=== PATIENT | male | born 1965 | race African-American/Black ===

== ENCOUNTER 2022-04-17 17:56 | Emergency (ER) | payer OTHER ==
[2022-04-17] MEDS ORDERED: FLUORESCEIN SODIUM 1 MG/WRAP ONE (18:38)
[2022-04-17] MEDS ORDERED: TETRACAINE HCL 0.5% 4ML OPTH ONE (18:38)
[2022-04-17] MEDS ORDERED: TOBRAMYCIN SULF 0.3% OPTH OINT ONE (19:14)
[2022-04-17] MEDS ORDERED: CEFTRIAXONE 1000 MG/VIAL ONE (19:14)
[2022-04-17] MEDS ORDERED: WATER FOR INJ,STERILE 10 ML ONE (19:15)
[2022-04-17] MEDS ORDERED: LIDOCAINE 1% MPF 5 ML VIAL ONE (19:16)
--- NOTE | 2022-04-17 19:28 | ER ---
Nurse's Notes [facility] Name: Flip Suazo Age: 56 yrs Sex: Male : 1965 Arrival Date: 04/17/2022 Time: 18:02 Bed 11 Private MD: Diagnosis: Acute conjunctivitis Presentation: 04/17 18:05 Chief complaint: Patient states: Left eye pain, swelling and discharge x5 days. kb3 Coronavirus screen: Vaccine status: Patient reports being unvaccinated. Client denies travel out of the [place] in the last 14 days. Ebola Screen: Patient negative for fever greater than or equal to 101.5 degrees Fahrenheit, and additional compatible Ebola Virus Disease symptoms Patient denies exposure to infectious person. Patient denies travel to an Ebola-affected area in the 21 days before illness onset. Initial Sepsis Screen: Does the patient meet any 2 criteria? No. Patient's initial sepsis screen is negative. Does the patient have a suspected source of infection? No. Patient's initial sepsis screen is negative. Risk Assessment: Do you want to hurt yourself or someone else? Patient reports no desire to harm self or others. Onset of symptoms was April 12, 2022. 18:05 Method Of Arrival: Ambulatory kb3 18:05 Acuity: CA 3 kb3 Triage Assessment: 18:07 General: Appears in no apparent distress. Behavior is calm, cooperative. Pain: kb3 Complains of pain in left eye Pain does not radiate. Pain currently is 5 out of 10 on a pain scale. Historical: - Allergies: 18:07 No Known Allergies; kb3 - PMHx: 18:07 Hypertensive disorder; CAD; Hypercholesterolemia; kb3 - PSHx: 18:07 Cardiac stent; kb3 - Immunization history:: Adult Immunizations up to date, Client reports having NOT received the Covid vaccine. Last tetanus immunization: up to date. - Social history:: Smoking status: Patient reports the use of cigarette tobacco products, smokes one pack cigarettes per day. Screenin:10 Abuse screen: Denies threats or abuse. Denies injuries from another. Nutritional kb3 screening: No deficits noted. Tuberculosis screening: No symptoms or risk factors identified. Fall Risk None identified. Assessment: 18:10 General: See triage note. kb3 18:10 EENT: Eyes are tearing on inner aspect of conjunctiva of left eye with exudate noted kb3 from inner aspect of conjunctiva of left eye. Vital Signs: 18:05 BP 184 / 117; Pulse 83; Resp 20; Temp 98.7; Pulse Ox 100% ; Weight 88.9 kg; Height 5 kb3 ft. 10 in. (177.80 cm); Pain 5/10; 18:05 Body Mass Index 28.12 (88.90 kg, 177.80 cm) kb3 ED Course: 18:02 Patient arrived in ED. jj6 18:07 Triage completed. kb3 18:07 Arm band placed on right wrist. kb3 18:10 Ever Alvarez PA is PHCP. jmm 18:10 Emigdio Paige DO is Attending Physician. jmm 18:10 Patient has correct armband on for positive identification. kb3 18:10 No provider procedures requiring assistance completed. Patient did not have IV access kb3 during this emergency room visit. 18:34 Amairani Randolph, ANGÉLICA is Primary Nurse. kb3 19:26 Moises Aaron MD is Referral Physician. m 19:26 Yani Whiteside MD is Referral Physician. [facility] Administered Medications: 19:19 Drug: Tetracaine Drops 0.5 % 1 drops Route: Ophthalmic; Site: right eye; kd3 19:24 Drug: Tobramycin Ointment (0.3 %) 1 application Route: Ophthalmic; Site: left eye; kd3 19:33 Follow up: Response: No adverse reaction kd3 19:24 Drug: Rocephin (cefTRIAXone) 1 grams Route: IM; Site: right vastus lateralis; kd3 19:33 Follow up: Response: No adverse reaction kd3 Medication: 18:10 VIS not applicable for this client. kb3 Outcome: 19:27 Discharge ordered by . [facility] 19:32 Discharged to home ambulatory. kd3 19:32 Condition: stable 19:32 Discharge instructions given to patient, family, Instructed on discharge instructions, follow up and referral plans. medication usage, Demonstrated understanding of instructions, follow-up care, medications, Prescriptions given X 1. 19:33 Patient left the ED. kd3 Signatures: Ever Alvarez PA PA Yesenia Garcia jj6 Brenda Herman RN RN kd3 Amairani Randolph, RN RN kb3
--- NOTE | 2022-04-17 19:28 | EDPHYS ---
Physician Documentation [facility] Name: Flip Suazo Age: 56 yrs Sex: Male : 1965 Arrival Date: 04/17/2022 Time: 18:02 Bed 11 Private MD: ED Physician Emigdio Paige HPI: 04/17 20:01 This 56 yrs old Black Male presents to ER via Ambulatory with complaints of Eye Problem.jmm 20:01 Onset: The symptoms/episode began/occurred gradually, 5 day(s) ago. Duration: the jmm symptoms are continuous. Is a 56-year-old male with history of hypertension, coronary artery disease, hyperlipidemia the presents emerged part with complaints of left eye pain, drainage, redness. Patient states that he developed irritation of his left eye around 5 days ago over the past 2 days he has had increased purulent drainage. Patient was seen in urgent care who may concerns for an abscess in the eye. Patient denies changes in vision. Historical: - Allergies: 18:07 No Known Allergies; kb3 - PMHx: 18:07 Hypertensive disorder; CAD; Hypercholesterolemia; kb3 - PSHx: 18:07 Cardiac stent; kb3 - Immunization history:: Adult Immunizations up to date, Client reports having NOT received the Covid vaccine. Last tetanus immunization: up to date. - Social history:: Smoking status: Patient reports the use of cigarette tobacco products, smokes one pack cigarettes per day. ROS: 20:01 Constitutional: Negative for fever, chills, and weight loss. jmm 20:01 Eyes: Positive for itching. 20:01 All other systems are negative. Exam: 20:01 Constitutional: This is a well developed, well nourished patient who is awake, alert, jmm and in no acute distress. 20:01 ENT: Moist Mucus Membranes Neck: Trachea midline, Supple Chest/axilla: Normal chest wall appearance and motion. Cardiovascular: Regular rate and rhythm. No edema appreciated Respiratory: Normal respirations, no respiratory distress appreciated Abdomen/GI: Non distended Back: Normal ROM Skin: General appearance color normal MS/ Extremity: Moves all extremities, no obvious deformities appreciated, no edema noted to the lower extremities Neuro: Awake and alert Psych: Behavior is normal, Mood is normal, Patient is cooperative and pleasant 20:01 Head/face: Mild left eyelid swelling, nontender to palpation. 20:01 Eyes: Extraocular movements: Conjunctiva: injected, in the left eye, Corneas: are normal, no evidence of abrasion, no foreign body, Sclera: abrasion, of the medial aspect of conjunctiva of left eye, Anterior chamber: no acute changes, Intraocular pressure: left eye = 15mmHg. Vital Signs: 18:05 BP 184 / 117; Pulse 83; Resp 20; Temp 98.7; Pulse Ox 100% ; Weight 88.9 kg; Height 5 kb3 ft. 10 in. (177.80 cm); Pain 5/10; 18:05 Body Mass Index 28.12 (88.90 kg, 177.80 cm) kb3 MDM: 18:12 Patient medically screened. [facility] 19:25 Data reviewed: vital signs, nurses notes. Counseling: I had a detailed discussion with [facility] the patient and/or guardian regarding: the historical points, exam findings, and any diagnostic results supporting the discharge/admit diagnosis, the need for outpatient follow up, to return to the emergency department if symptoms worsen or persist or if there are any questions or concerns that arise at home. 20:03 ED course: Patient is alert nontoxic in appearance NAD. Patient administered ophthalmic [facility] antibiotics and oral antibiotics. Advised follow-up with ophthalmology. I did give the patient strict return precautions. Patient most likely has a bacterial conjunctivitis secondary to a scleral injury.. 04/17 18:20 Order name: Eye Tray; Complete Time: 18:34 [facility] 04/17 18:20 Order name: Fluoresene Opth strip; Complete Time: 18:34 [facility] Administered Medications: 19:19 Drug: Tetracaine Drops 0.5 % 1 drops Route: Ophthalmic; Site: right eye; kd3 19:24 Drug: Tobramycin Ointment (0.3 %) 1 application Route: Ophthalmic; Site: left eye; kd3 19:33 Follow up: Response: No adverse reaction kd3 19:24 Drug: Rocephin (cefTRIAXone) 1 grams Route: IM; Site: right vastus lateralis; kd3 19:33 Follow up: Response: No adverse reaction kd3 Disposition: 04/18 07:57 Co-signature as Attending Physician, Emigdio Paige DO I was immediately available on-site ms3 in the Emergency Department for consultation in the care of the patient. Disposition Summary: 04/17/22 19:27 Discharge Ordered Location: Home [facility] Condition: Stable [facility] Diagnosis - Acute conjunctivitis [facility] Followup: [facility] - With: Moises Aaron MD - When: 2 - 3 days - Reason: Recheck today's complaints, Continuance of care, Re-evaluation by your physician Followup: [facility] - With: Yani Whiteside MD - When: 2 - 3 days - Reason: Recheck today's complaints, Continuance of care, Re-evaluation by your physician Discharge Instructions: - Discharge Summary Sheet [facility] - Bacterial Conjunctivitis, Adult [facility] Forms: - Medication Reconciliation Form [facility] - Thank You Letter [facility] - Antibiotic Education [facility] - Prescription Opioid Use [facility] Prescriptions: - cefdinir 300 mg Oral capsule - take 1 capsule by ORAL route every 12 hours for 10 days; 20 capsule; Refills: [facility] 0, Product Selection Permitted Signatures: Ever Alvarez PA PA [facility] Emigdio Paige DO DO ms3 Brenda Herman, RN RN kd3 Amairani Randolph RN RN kb3
[2022-04-17 19:38] VITALS: BP 184/117; TEMP 98.7; O2SAT 100
== END 2022-04-17 19:33 | disposition home or self-care (01) ==
LOC: ER 17:56
DX: H10.30 Unspecified acute conjunctivitis, unspecified eye (principal); I10 Essential (primary) hypertension; F17.210 Nicotine dependence, cigarettes, uncomplicated
CPT/HCPCS: 96372; 99283; J2001

== ENCOUNTER 2024-05-31 02:05 | Inpatient (IN) | payer OTHER, SELFPAY ==
[2024-05-31] MEDS ORDERED: GUAIFENESIN/DM 5 ML UCUP ONE (02:36)
[2024-05-31 03:09] LABS: Absolute Eosinophils 0.1 K/uL (0-0.5); Absolute Lymphocytes (CBC) 0.9 K/uL (0.7-4.9); Absolute Monocytes 0.5 K/uL (0.1-1.3); Absolute Neutrophil 9.6 K/uL (1.8-8.0); Basophils % 0.4 % (0-1.3); Eosinophils % 0.9 % (0-4.4); Hematocrit 31.3 % (39.6-49.0); Hemoglobin 9.9 g/dL (13.6-17.9); Lymphocytes % 8.3 % (15.3-44.8); MCH 22.6 pg (27.0-35.0); MCHC 31.5 g/dL (32.0-36.0); MCV 71.8 fL (80-100); MPV 8.5 fL (7.6-11.3); Monocytes % 4.5 % (3.3-12.3); Neutrophils % 85.9 % (41.7-73.7); PT Prothrombin Time 14.8 SECONDS (9.4-12.5); Platelets 375 thou/uL (152-406); Protime INR 1.33; RBC Red Blood Cell Count 4.36 M/uL (4.33-5.43); Red Cell Distribution Width 23.5 % (12.1-15.2)
[2024-05-31 03:21] LABS: Albumin 3.1 g/dL (3.4-5.0); Albumin/Globulin Ratio 0.7 (1.1-1.8); Anion Gap 9.2 mEq/L (5.0-15.0); Bilirubin Direct 0.3 mg/dL (0-0.2); Bilirubin Indirect, Calculated 0.7 mg/dL (0.2-0.8); C-Reactive Protein 16.5 mg/L (<3.00); Globulin 4.5 g/dL (2.3-3.5); Magnesium 2.2 mg/dL (1.6-2.4); Potassium 3.2 mEq/L (3.5-5.1); Protein, Total 7.6 g/dL (6.4-8.2)
[2024-05-31 03:22] LABS: Troponin High Sensitivity 83.7 pg/mL (<58.9)
[2024-05-31] MEDS ORDERED: FUROSEMIDE 40 MG/4 ML VIAL ONE (03:56)
[2024-05-31] MEDS ORDERED: HYDRALAZINE HCL 20 MG/ML VIAL ONE (03:56)
[2024-05-31 04:04] LABS: Anisocytosis 2+; Band Neutrophils 3 % (0-1); Blood Morphology Comment NOTED (NOT SEEN); Differential Total Cells Count 100; Lymphocytes 7 % (15-42); Monocytes 4 % (0-10); Platelet Estimate ADEQ; Segmented Neutrophils 86 % (40-80)
--- NOTE | 2024-05-31 04:34 | ER ---
Nurse's Notes [facility] Name: Flip Suazo Age: 58 yrs Sex: Male : 1965 Arrival Date: 05/31/2024 Time: 02:05 Bed 5 Private MD: Diagnosis: Acute on chronic diastolic (congestive) heart failure;Hypertensive emergency, elevated troponin I, CHF exacerbation Presentation: 05/31 02:15 Chief complaint: Patient states: COUGH, WHEEZING AND DIFFICULTY BREATHING X5 DAYS. dd2 Coronavirus screen: At this time, the client does not indicate any symptoms associated with coronavirus-19. Ebola Screen: No symptoms or risks identified at this time. Initial Sepsis Screen: Does the patient meet any 2 criteria? No. Patient's initial sepsis screen is negative. Does the patient have a suspected source of infection? No. Patient's initial sepsis screen is negative. Risk Assessment: Do you want to hurt yourself or someone else? Patient reports no desire to harm self or others. Onset of symptoms is unknown. 02:15 Method Of Arrival: Ambulatory dd2 02:15 Acuity: CA 3 dd2 Triage Assessment: 02:18 General: Appears in no apparent distress. Behavior is calm, cooperative, appropriate dd2 for age. Pain: Denies pain. EENT: No deficits noted. No signs and/or symptoms were reported regarding the EENT system. Neuro: No deficits noted. Nick Agitation-Sedation Scale (RASS): 0 - Alert and Calm Level of Consciousness is awake, alert, obeys commands, Oriented to person, place, time, situation, Appropriate for age. Cardiovascular: Patient's skin is warm and dry. Respiratory: Reports shortness of breath at rest on exertion cough that is productive, persistent Airway is patent Respiratory effort is even, unlabored, Respiratory pattern is regular, symmetrical, Onset: The symptoms/episode began/occurred at an unknown time. the patient has mild shortness of breath. GI: No deficits noted. No signs and/or symptoms were reported involving the gastrointestinal system. Abdomen is flat, non-distended, Abd is soft and non tender. : No deficits noted. No signs and/or symptoms were reported regarding the genitourinary system. Derm: No deficits noted. No signs and/or symptoms reported regarding the dermatologic system. Musculoskeletal: No deficits noted. No signs and/or symptoms reported regarding the musculoskeletal system. Circulation, motion, and sensation intact. Range of motion: intact in all extremities. Historical: - Allergies: 02:18 No Known Allergies; dd2 - PMHx: 02:18 CAD; Hypercholesterolemia; Hypertensive disorder; dd2 - PSHx: 02:18 cardiac stent; dd2 - Immunization history:: Adult Immunizations up to date, Client reports having NOT received the Covid vaccine. Flu vaccine is not up to date. Patient has never been vaccinated. - Infectious Disease History:: Denies. - Social history:: Smoking status: Patient reports the use of cigarette tobacco products, smokes one pack cigarettes per day. - Family history:: not pertinent. Screenin:21 [facility] ED Fall Risk Assessment (Adult) History of falling in the last 3 months, dd2 including since admission No falls in past 3 months (0 pts) Confusion or Disorientation No (0 pts) Intoxicated or Sedated No (0 pts) Impaired Gait No (0 pts) Mobility Assist Device Used No (0 pt) Altered Elimination No (0 pt) Score/Fall Risk Level 0 - 2 = Low Risk Oriented to surroundings, Maintained a safe environment, Educated pt \T\ family on fall prevention, incl call for assistance when getting out of bed, Assessed \T\ reinforced patient's understanding of fall precautions, Hourly rounding (assess needs \T\ fall precautionary measures) done. Abuse screen: Denies threats or abuse. Nutritional screening: No deficits noted. Tuberculosis screening: No symptoms or risk factors identified. Assessment: 02:21 Reassessment: SEE TRIAGE ASSESSMENT FOR FULL ASSESSMENT. dd2 03:35 Reassessment: Patient and/or family updated on plan of care and expected duration. Pain ha1 level reassessed. Patient is alert, oriented x 3, equal unlabored respirations, skin warm/dry/pink. 04:40 Reassessment: Patient and/or family updated on plan of care and expected duration. Pain ha1 level reassessed. Patient is alert, oriented x 3, equal unlabored respirations, skin warm/dry/pink. 05:50 Reassessment: Patient and/or family updated on plan of care and expected duration. Pain ha1 level reassessed. Patient is alert, oriented x 3, equal unlabored respirations, skin warm/dry/pink. Patient states feeling better. Patient states symptoms have improved. 05:50 Cardiovascular: Rhythm is regular. Respiratory: Airway is patent Respiratory effort is ha1 even, unlabored, Respiratory pattern is regular, symmetrical, Breath sounds are clear bilaterally. Vital Signs: 02:15 BP 181 / 136; Pulse 98; Resp 16; Temp 98.4(O); Pulse Ox 100% on R/A; Weight 84.82 kg; dd2 Height 5 ft. 10 in. ; 03:00 BP 180 / 130; Pulse 96; Resp 17; Pulse Ox 96% on R/A; ay 03:30 BP 178 / 132; Pulse 94; Resp 18 S; Pulse Ox 96% ; ay 04:00 BP 164 / 106; Pulse 94; Resp 17; Pulse Ox 98% on R/A; ay 04:20 BP 160 / 119; Pulse 95; Resp 17; Pulse Ox 96% on R/A; ay 05:15 BP 144 / 106; Pulse 95; Resp 16; Pulse Ox 96% on R/A; ay 05:55 BP 156 / 100; Pulse 97; Resp 17; Pulse Ox 97% on R/A; ay 02:15 Body Mass Index 26.83 (84.82 kg, 177.8 cm) dd2 [place] Coma Score: 02:21 Eye Response: spontaneous(4). Motor Response: obeys commands(6). Verbal Response: dd2 oriented(5). Total: 15. 04:28 Eye Response: spontaneous(4). Motor Response: obeys commands(6). Verbal Response: sp4 oriented(5). Total: 15. ED Course: 02:08 Patient arrived in ED. gm2 02:18 Triage completed. dd2 02:18 Arm band placed on left wrist. Patient placed in an exam room, on a stretcher, on pulse dd2 oximetry. 02:21 Patient has correct armband on for positive identification. Bed in low position. Call dd2 light in reach. Side rails up X 1. Client placed on continuous cardiac and pulse oximetry monitoring. NIBP monitoring applied. Door closed. Noise minimized. Pillow given. Verbal reassurance given. 02:21 No provider procedures requiring assistance completed. Patient maintains SpO2 dd2 saturation greater than 95% on room air. 02:24 Williams Trevino MD is Attending Physician. sp4 02:36 Initial lab(s) drawn, by me, sent to lab. Inserted saline lock: 20 gauge in right ay antecubital area, using aseptic technique. Blood collected. Flushed with 10 mL NS. 02:51 XRAY Chest (1 view) In Process Unspecified. EDMS 02:55 EKG done, by ED staff. vk 02:55 Influenza Screen (a \T\ B) Sent. vk 04:17 Lisa Esposito RN is Primary Nurse. ay 04:32 Katherine Garcia MD is Hospitalizing Provider. sp4 06:54 Patient admitted, IV remains in place. dd2 06:55 Provided Education on: D/C EDUCATION. dd2 Administered Medications: 02:39 Drug: Dextromethorphan-Guaifenesin PO Liquid 10 mg-100 mg/5 mL 20 ml PO once Route: PO; ha1 03:00 Follow up: Response: No adverse reaction ha1 04:01 Drug: hydrALAZINE IVP 20 mg IVP once Route: IVP; Site: right antecubital; ay 04:16 Follow up: Response: No adverse reaction ay 04:02 Drug: Furosemide IVP 40 mg IVP once; give over 2 minutes Route: IVP; Site: right ay antecubital; 04:17 Follow up: Response: No adverse reaction ay 05:14 Drug: Enoxaparin Sub-Q 1 mg/kg Sub-Q once Route: Sub-Q; Site: abdomen; ha1 05:29 Follow up: Response: No adverse reaction ay 05:14 Drug: Nitroglycerin Transdermal Ointment 2 % 1 inches Transdermal once {Note: chest .} ha1 Route: Transdermal; Site: affected area; 05:50 Follow up: Response: No adverse reaction; Marked relief of symptoms ha1 Medication: 02:21 VIS not applicable for this client. dd2 Outcome: 04:33 Decision to Hospitalize by Provider. sp4 06:54 Admitted to Med/surg accompanied by tech, via wheelchair, with chart, dd2 06:54 Condition: stable 06:54 Instructed on the need for admit, Demonstrated understanding of instructions, 06:56 Patient left the ED. dd2 Signatures: Dispatcher [employer] EDMS Radha Freeman RN RN ha1 Williams Trevino MD MD sp4 Neela Starkey 2 Blanca Dominique DIANA, RN RN dd2 Lisa Esposito RN RN ay Corrections: (The following items were deleted from the chart) 06:44 05:50 Reassessment: Patient and/or family updated on plan of care and expected ha1 duration. Pain level reassessed. Patient is alert, oriented x 3, equal unlabored respirations, skin warm/dry/pink. Patient states feeling better. Patient states symptoms have improved. ha1
--- NOTE | 2024-05-31 04:34 | EDPHYS ---
Physician Documentation [facility] Name: Flip Suazo Age: 58 yrs Sex: Male : 1965 Arrival Date: 05/31/2024 Time: 02:05 Bed 5 Private MD: ED Physician Williams Trevino HPI: 05/31 02:25 This 58 yrs old Black Male presents to ER via Ambulatory with complaints of Breathing sp4 Difficulty, Cough, Wheezing. 04:27 58-year-old male past medical history of congestive heart failure coronary artery sp4 disease with 2 prior stents presents with several days of shortness of breath and bilateral lower extremity swelling. Patient reports dyspnea on exertion cough and wheezing. Patient's list of medications include Plavix 75 mg p.o. daily, Protonix 40 mg daily, eplerenone 50 mg p.o. daily, hydralazine 100 mg p.o. twice daily, atorvastatin 80 mg p.o. daily, carvedilol 25 mg twice daily, and torsemide as needed. Historical: - Allergies: 02:18 No Known Allergies; dd2 - PMHx: 02:18 CAD; Hypercholesterolemia; Hypertensive disorder; dd2 - PSHx: 02:18 cardiac stent; dd2 - Immunization history:: Adult Immunizations up to date, Client reports having NOT received the Covid vaccine. Flu vaccine is not up to date. Patient has never been vaccinated. - Infectious Disease History:: Denies. - Social history:: Smoking status: Patient reports the use of cigarette tobacco products, smokes one pack cigarettes per day. - Family history:: not pertinent. ROS: 04:28 Constitutional: Negative for fever, chills, and weight loss, positive for dyspnea on sp4 exertion, positive for shortness of breath wheezing cough congestion and positive for bilateral lower extremity swelling 04:28 All other systems are negative, Exam: 04:28 Constitutional: This is a well developed, well nourished patient who is awake, alert, sp4 and in no acute distress. Head/Face: Normocephalic, atraumatic. Eyes: Pupils equal round and reactive to light, extra-ocular motions intact. Lids and lashes normal. Conjunctiva and sclera are not injected. Cornea within normal limits. Periorbital areas with no swelling, redness, or edema. ENT: Nares patent. No nasal discharge, no septal abnormalities noted. Tympanic membranes are normal and external auditory canals are clear. Oropharynx with no redness, swelling, or masses, exudates, or evidence of obstruction, uvula midline. Mucous membranes moist. Neck: Trachea midline, no thyromegaly or masses palpated, and no cervical lymphadenopathy. Supple, full range of motion without nuchal rigidity, or vertebral point tenderness. Positive for jugular venous distention Chest/axilla: Normal chest wall appearance and motion. Nontender with no deformity. No lesions are appreciated. Cardiovascular: Irregular tachycardia. No gallops, murmurs, or rubs. Normal PMI, No pulse deficits. Positive JVD positive bilateral lower extremity swelling positive irregular tachycardia Respiratory: Lungs have equal breath sounds bilaterally, clear to auscultation and percussion. No rales, rhonchi or wheezes noted. No increased work of breathing, no retractions or nasal flaring. Abdomen/GI: Soft, with normal bowel sounds. No distension or tympany. No guarding or rebound. No evidence of tenderness throughout. Back: No spinal tenderness. No costovertebral tenderness. Skin: Warm, dry with normal turgor. Normal color with no rashes, no lesions, and no evidence of cellulitis. MS/ Extremity: Pulses equal, no cyanosis. Neurovascular intact. Full, normal range of motion. Neuro: Awake and alert, GCS 15, oriented to person, place, time, and situation. Cranial nerves II-XII grossly intact. Motor strength 5/5 in all extremities. Sensory grossly intact. Psych: Awake, alert, with orientation to person, place and time. Behavior, mood, and affect are within normal limits 04:28 ECG was reviewed by the Attending Physician. EKG at 0 251 sinus rhythm rate 98 frequent PVCs that are unifocal. Prolonged QT. Vital Signs: 02:15 BP 181 / 136; Pulse 98; Resp 16; Temp 98.4(O); Pulse Ox 100% on R/A; Weight 84.82 kg; dd2 Height 5 ft. 10 in. ; 03:00 BP 180 / 130; Pulse 96; Resp 17; Pulse Ox 96% on R/A; ay 03:30 BP 178 / 132; Pulse 94; Resp 18 S; Pulse Ox 96% ; ay 04:00 BP 164 / 106; Pulse 94; Resp 17; Pulse Ox 98% on R/A; ay 04:20 BP 160 / 119; Pulse 95; Resp 17; Pulse Ox 96% on R/A; ay 05:15 BP 144 / 106; Pulse 95; Resp 16; Pulse Ox 96% on R/A; ay 05:55 BP 156 / 100; Pulse 97; Resp 17; Pulse Ox 97% on R/A; ay 02:15 Body Mass Index 26.83 (84.82 kg, 177.8 cm) dd2 [place] Coma Score: 02:21 Eye Response: spontaneous(4). Motor Response: obeys commands(6). Verbal Response: dd2 oriented(5). Total: 15. 04:28 Eye Response: spontaneous(4). Motor Response: obeys commands(6). Verbal Response: sp4 oriented(5). Total: 15. MDM: 02:24 Medical Screening Exam initiated sp4 03:20 ED course: EXAM: XR Chest, 1 View CLINICAL HISTORY: CHEST PAIN TECHNIQUE: Frontal view sp4 of the chest. COMPARISON: No relevant prior studies available. FINDINGS: Lungs: Mild central pulmonary vascular and interstitial prominence. No consolidation. Pleural space: Slight blunting of the left costophrenic angle. No pneumothorax. Heart: The cardiac silhouette is mildly to moderately enlarged, in part accentuated by portable technique. Mediastinum: Unremarkable. Normal mediastinal contour. Bones/joints: Unremarkable. No acute fracture. IMPRESSION: Findings which may be related to mild pulmonary congestion including possible small left pleural effusion.. 04:31 Differential diagnosis: asthma, Bronchitis CHF exacerbation, Chronic Obstructive sp4 Pulmonary Disease Myocardial Infarction pneumonia, Psychogenic. Data reviewed: vital signs, nurses notes, lab test result(s), EKG, radiologic studies, plain films. 05/31 02:24 Order name: Basic Metabolic Panel; Complete Time: 04:24 sp4 05/31 02:24 Order name: CBC with Diff; Complete Time: 04:24 sp4 05/31 02:24 Order name: LFT's; Complete Time: 04:24 sp4 05/31 02:24 Order name: Magnesium; Complete Time: 04:24 sp4 05/31 02:24 Order name: NT PRO-BNP; Complete Time: 04:24 sp4 05/31 02:24 Order name: PT-INR; Complete Time: 03:20 sp4 05/31 02:24 Order name: Troponin HS; Complete Time: 04:24 sp4 05/31 02:24 Order name: Influenza Screen (a \T\ B); Complete Time: 04:24 sp4 05/31 02:25 Order name: CRP; Complete Time: 04:24 sp4 05/31 03:13 Order name: Manual Differential; Complete Time: 04:24 EDMS 05/31 05:48 Order name: Urinalysis w/ reflexes EDMS 05/31 05:48 Order name: Lipid Profile EDMS 05/31 05:48 Order name: Lipid Profile EDMS 05/31 05:48 Order name: Troponin High Sensitivity EDMS 05/31 05:48 Order name: Troponin High Sensitivity EDMS 05/31 05:48 Order name: Troponin High Sensitivity EDMS 05/31 05:48 Order name: Troponin High Sensitivity EDMS 05/31 05:48 Order name: Troponin High Sensitivity EDMS 05/31 02:24 Order name: XRAY Chest (1 view) sp4 05/31 05:48 Order name: Echo with Doppler EDMS 05/31 02:24 Order name: Cardiac monitoring; Complete Time: 02:55 sp4 05/31 02:24 Order name: EKG - Nurse/Tech; Complete Time: 02:55 sp4 05/31 02:24 Order name: IV Saline Lock; Complete Time: 02:55 sp4 05/31 02:24 Order name: Labs collected and sent; Complete Time: 03:35 sp4 05/31 02:24 Order name: O2 Per Protocol; Complete Time: 02:55 sp4 05/31 02:24 Order name: O2 Sat Monitoring; Complete Time: 02:55 sp4 EC:51 Rate is 98 beats/min. Rhythm is irregular, Sinus Rhythm with Unifocal PVCs. QRS [place] is sp4 Normal. [place] interval is normal. QRS interval is normal. QT interval is prolonged. T waves are Inverted in leads II, III, aVF, V6. Interpreted by me. Reviewed by me. Administered Medications: 02:39 Drug: Dextromethorphan-Guaifenesin PO Liquid 10 mg-100 mg/5 mL 20 ml PO once Route: PO; ha1 03:00 Follow up: Response: No adverse reaction ha1 04:01 Drug: hydrALAZINE IVP 20 mg IVP once Route: IVP; Site: right antecubital; ay 04:16 Follow up: Response: No adverse reaction ay 04:02 Drug: Furosemide IVP 40 mg IVP once; give over 2 minutes Route: IVP; Site: right ay antecubital; 04:17 Follow up: Response: No adverse reaction ay 05:14 Drug: Enoxaparin Sub-Q 1 mg/kg Sub-Q once Route: Sub-Q; Site: abdomen; ha1 05:29 Follow up: Response: No adverse reaction ay 05:14 Drug: Nitroglycerin Transdermal Ointment 2 % 1 inches Transdermal once {Note: chest .} ha1 Route: Transdermal; Site: affected area; 05:50 Follow up: Response: No adverse reaction; Marked relief of symptoms ha1 Disposition: 04:34 Critical Care:. sp4 Disposition Summary: 05/31/24 04:33 Hospitalization Ordered Notes: Hospitalization Status: Inpatient Admission sp4 Provider: Katherine Garcia sp4 [facility] sp[facility] Condition: Fair sp4 Problem: new sp4 Symptoms: have improved sp4 Bed/Room Type: Standard sp4 Room Assignment: 216(05/31/24 05:57) vc1 Diagnosis - Acute on chronic diastolic (congestive) heart failure sp4 - Hypertensive emergency, elevated troponin I, CHF exacerbation sp4 Forms: - Medication Reconciliation Form sp4 - SBAR form sp4 - Leadership Thank You Letter sp4 Critical care time excluding procedures: 04:34 Critical care time: Bedside Care: 36 minutes, Consultation: 12 minutes. Total time: 48 sp4 minutes Signatures: Dispatcher [employer] EDMS Letha Monteiro RN RN vc1 Radha Freeman RN RN ha1 Potepalov, Sergey, MD MD sp4 PATRICIA PORTER RN RN dd2 Lisa Esposito RN ANGÉLICA ay Corrections: (The following items were deleted from the chart) 02:24 02:24 BASIC METABOLIC PANEL+C.LAB.BRZ ordered. EDMS EDMS 02:24 02:24 CBC+H.LAB.BRZ ordered. EDMS EDMS 02:24 02:24 HEPATIC FUNCTION+C.LAB.BRZ ordered. EDMS EDMS 02:24 02:24 MAGNESIUM+C.LAB.BRZ ordered. EDMS EDMS 02:24 02:24 PROBNP+C.LAB.BRZ ordered. EDMS EDMS 02:24 02:24 PROTIME (+INR)+COAG.LAB.BRZ ordered. EDMS EDMS 02:24 02:24 Troponin High Sensitivity+C.LAB.BRZ ordered. EDMS EDMS 02:24 02:24 Chest Single View+RAD.RAD.BRZ ordered. EDMS EDMS 02:25 02:25 Influenza Screen (A \T\ B)+BA.LAB.BRZ ordered. EDMS EDMS 05:57 04:33 sp4 vc1
[2024-05-31] MEDS ORDERED: NITROGLYCERIN 1 GM PKT TD ONE (05:01)
[2024-05-31] MEDS ORDERED: ENOXAPARIN 80 MG/0.8 ML SQ ONE (05:01)
--- NOTE | 2024-05-31 05:37 | P.HP ---
Certification for Inpatient Patient admitted to: Inpatient With expected LOS: >2 Midnights Practitioner: I am a practitioner with admitting privileges, knowledge of patient current condition, hospital course, and medical plan of care. Services: Services provided to patient in accordance with Admission requirements found in Title 42 Section 412.3 of the Code of Federal Regulations Patient History Date of Service: 05/31/24 Reason for admission: SOB History of Present Illness: 58-year-old male with history of coronary artery disease, hypertension presents to the ER with complaints of 5-day history of shortness of breath. He does report having a cough with clear phlegm. He does smoke. Denies any fevers or chills. Reported some dyspnea on exertion. Imaging suggestive of fluid overload. Patient denies any chest pain, fevers diarrhea or recent sick contacts. He does work as a reefer truck driver. Review of Systems 10-point ROS is otherwise unremarkable Respiratory: Cough, Shortness of Breath Physical Examination - Physical Exam General: Alert, Oriented x3 HEENT: Atraumatic, Normocephalic Respiratory: Clear to auscultation bilaterally, Normal air movement Cardiovascular: Regular rate/rhythm Gastrointestinal: Normal bowel sounds, Soft and benign Musculoskeletal: No clubbing, No swelling - Studies Laboratory Data (last 24 hrs) 05/31/24 05/31/24 05/31/24 02:38 02:38 02:38 WBC 11.20 H Hgb 9.9 L Hct 31.3 L Plt Count 375 PT 14.8 H INR 1.33 Sodium 141 Potassium 3.2 L BUN 23 H Creatinine 1.56 H Glucose 140 H Magnesium 2.2 Total Bilirubin 1.0 AST 29 ALT 55 Alkaline Phosphatase 138 H Microbiology Data (last 24 hrs): 05/31/24 02:35 Nasopharnyx Influenza Type A Antigen Screen - Final 05/31/24 02:35 Nasopharnyx Influenza Type B Antigen Screen - Final Assessment and Plan - Problems (Diagnosis) (1) Dyspnea Current Visit: Yes Status: Acute (2) CAD (coronary artery disease) Current Visit: Yes Status: Acute (3) Troponin I above reference range Current Visit: Yes Status: Acute - Plan 58-year-old male with history of coronary disease presents with 5-day history of increased dyspnea Dyspnea Pulmonary congestion Tobacco use --ddx CHF exacerbation, COPD --IV lasix given in ED --check ECHO --consult cardiology in ED Acute kidney injury --renal dose medication elevated troponin --denies chest pain, EKG NSR --check echo, consult cardiology --Lovenox given in ED History of hypertension --await med rec Hypokalemia --replace and recheck DVT:Lovenox Code: full - Advance Directives Does patient have a Living Will: No Does patient have a Durable POA for Healthcare: No
[2024-05-31] MEDS ORDERED: ALBUTEROL 2.5 MG/3 ML NEB SOL NEB PRN ×2 (05:42→16:53)
--- NOTE | 2024-05-31 05:50 | RAD REPORT ---
EXAM: XR Chest, 1 View CLINICAL HISTORY: CHEST PAIN TECHNIQUE: Frontal view of the chest. COMPARISON: No relevant prior studies available. FINDINGS: Lungs: Mild central pulmonary vascular and interstitial prominence. No consolidation. Pleural space: Slight blunting of the left costophrenic angle. No pneumothorax. Heart: The cardiac silhouette is mildly to moderately enlarged, in part accentuated by portable brii hnique. Mediastinum: Unremarkable. Normal mediastinal contour. Bones/joints: Unremarkable. No acute fracture. IMPRESSION: Findings which may be related to mild pulmonary congestion including possible small left pleural effu marce. Electronically signed by: Nayana Abdi MD 05/31/2024 03:15 AM [facility] Due to temporary technical issues with the PACS/[employer] reporting system, reports are being harley d by the in-house radiologist without review as a courtesy to ensure prompt reporting the interpreting radiologist is fully responsible for the content of the report. Transcribed Date/Time: 05/31/2024 5:50 AM
[2024-05-31 07:14] VITALS: O2SAT 97
[2024-05-31 07:48] VITALS: BMI 26.8
[2024-05-31] MEDS ORDERED: FUROSEMIDE 40 MG TABLET PO SCH (09:30)
[2024-05-31] MEDS ORDERED: METOPROLOL TARTRATE 5 MG/5 ML INJ IV PRN (09:31)
[2024-05-31] MEDS: METOPROLOL TARTRATE 5 MG/5 ML INJ IV STA (10:18)
[2024-05-31] MEDS: KCL 20 MEQ/100 mL IVPB 20 MEQ/100 ML BAG IV SCH (10:19)
[2024-05-31] MEDS: FUROSEMIDE 40 MG/4 ML VIAL IV SCH (10:19)
[2024-05-31] MEDS: HYDRALAZINE HCL 20 MG/ML VIAL IV ONE (10:19)
[2024-05-31] MEDS: ASPIRIN EC 81 MG TAB PO SCH (10:19)
[2024-05-31] MEDS: NA CHLORIDE 0.9% 250 ML ONE (10:45)
--- NOTE | 2024-05-31 11:48 | P.CNS ---
Date of Consult: 05/31/24 Chief Complaint: SOB History of Present Illness: Patient with PMH of HTN, CAD s/p PCI almost 5 years ago, presented with worsening SOB and MAN, denies chest pain, no palpitations, no syncope. Allergies No Known Allergies Allergy (Unverified 05/31/24 07:39) Home medications list reviewed: Yes Home Medications: Atorvastatin Calcium [Lipitor] 80 mg PO BEDTIME 05/31/24 Clopidogrel Bisulfate [Plavix] 75 mg PO DAILY 05/31/24 Hydralazine HCl 100 mg PO BID 05/31/24 Pantoprazole [Protonix Tab*] 40 mg PO DAILY 05/31/24 Torsemide [Demadex] 20 mg PO DAILY 05/31/24 carvediloL [Carvedilol] 25 mg PO BID 05/31/24 - Past Medical/Surgical History Diabetic: No -: Hypertension -: CAD -: Hypercholesterolemia -: Right knee surgery - Social History Smoking Status: Current every day smoker Alcohol use: Yes CD- Drugs: No Caffeine use: No Place of Residence: Home Review of Systems 10-point ROS is otherwise unremarkable Physical Examination Temp Pulse Resp BP Pulse Ox 98.0 F 104 H 18 179/94 H 97 05/31/24 08:00 05/31/24 11:30 05/31/24 11:30 05/31/24 11:30 05/31/24 08:00 General: Alert, In no apparent distress HEENT: Atraumatic, PERRLA, Mucous membr. moist/pink, EOMI, Sclerae nonicteric Neck: Supple, 2+ carotid pulse no bruit, No LAD, Without JVD or thyroid abnormality Respiratory: Clear to auscultation bilaterally, Normal air movement Cardiovascular: Regular rate/rhythm, Normal S1 S2 Gastrointestinal: Normal bowel sounds, No tenderness Musculoskeletal: No tenderness Integumentary: No rashes Neurological: Normal gait, Normal speech, Normal tone, Normal affect Lymphatics: No axilla or inguinal lymphadenopathy Laboratory Data (last 24 hrs) 05/31/24 05/31/24 05/31/24 02:38 02:38 02:38 WBC 11.20 H Hgb 9.9 L Hct 31.3 L Plt Count 375 PT 14.8 H INR 1.33 Sodium 141 Potassium 3.2 L BUN 23 H Creatinine 1.56 H Glucose 140 H Magnesium 2.2 Total Bilirubin 1.0 AST 29 ALT 55 Alkaline Phosphatase 138 H - Problems (1) HTN (hypertension) Current Visit: Yes Status: Acute Plan: Patient BP is high re start patient home dose of Coreg 25 mg po BID Start Losartan 25 mg daily start spirnolactone 25 mg daily (2) CAD (coronary artery disease) Current Visit: Yes Status: Acute Plan: patient mention that he had stents in the past and he see cardiology in [place], he had a stress test 6 months ago that was normal please get records. Patient troponin elevation is mild and most likely type 2 ID from heart failure. continue ASA, Plavix and lipitor (3) Dyspnea Current Visit: Yes Status: Acute Plan: patient do not recall was told that he have heart failure get echo continue Lasix 40 mg IV BID. Monitor input and output and electrolytes adjust medications as above. patient is on [place]mide 20 mg daily (might need to increase to BID at discharge for 1 week).
[2024-05-31] MEDS: METOPROLOL TARTRATE 5 MG/5 ML INJ IV PRN (12:39)
[2024-05-31] MEDS: ACETAMINOPHEN 500 MG TAB PO PRN (13:04)
[2024-05-31] MEDS: carvediloL 25 MG TAB PO SCH ×2 (16:48→18:08)
[2024-05-31] MEDS: HYDRALAZINE HCL 20 MG/ML VIAL IV PRN (18:08)
--- NOTE | 2024-05-31 20:07 | P.PN ---
Date of Service: 05/31/24 subjective Hypertensive, as needed antihypertensives given, no reported chest chest pain N.p.o. for stress test Review of Systems 10-point ROS is otherwise unremarkable Physical Examination - Physical Exam Physical Exam General: Alert, In no apparent distress, Oriented x3 HEENT: Atraumatic, Normocephalic Neck: 2+ carotid pulse no bruit, JVD not distended Respiratory: Normal air movement, Crackles/rales Cardiovascular: Regular rate/rhythm, Normal S1 S2 Capillary refill: <2 Seconds Gastrointestinal: Normal bowel sounds, Soft and benign Musculoskeletal: No swelling, No contractures Integumentary: No breakdown, No significant lesion Neurological: Normal speech, Normal strength at 5/5 x4 extr Assessment and Plan - Problems (Diagnosis) hypertensive urgency Current Visit: Yes Status: Acute NSTEMI Current Visit: Yes Status: Acute acute on chronic heart failure unknown baseline Current Visit: Yes Status: Acute Dyspnea secondary pulmonary edema Current Visit: Yes Status: Acute CAD (coronary artery disease) Current Visit: Yes Status: Acute Troponin I above reference range NSTEMI Current Visit: Yes Status: Acute Tobacco use Current Visit: Yes Status: Acute - Plan 58-year-old male with history of coronary disease presents with 5-day history of increased dyspnea Dyspnea Pulmonary congestion Tobacco use-educated on tobacco ddx CHF exacerbation, COPD Gentle diuresis ECHO ordered consult cardiology in ED Acute kidney injury likely secondary to prerenal CHF --renal dose medication elevated troponin/NSTEMI --denies chest pain, EKG NSR --check echo, consult cardiology --Lovenox given in ED History of hypertension --await med rec Hypokalemia --replace and recheck DVT:Lovenox Code: full - Advance Directives Does patient have a Living Will: No Does patient have a Durable POA for Healthcare: No
[2024-05-31] MEDS ORDERED: HYDRALAZINE HCL 25 MG TABLET PO SCH (21:00)
[2024-05-31] MEDS: ATORVASTATIN 80 MG TAB PO SCH (21:31)
[2024-05-31] MEDS: ISOSORBIDE DINIT 5 MG TAB PO SCH (21:31)
[2024-05-31] MEDS: HYDRALAZINE HCL 25 MG TABLET PO SCH (21:32)
[2024-06-01 04:33] LABS: Absolute Basophils 0.1 K/uL (0-0.5); Absolute Eosinophils 0.1 K/uL (0-0.5); Absolute Lymphocytes (CBC) 1.2 K/uL (0.7-4.9); Absolute Monocytes 0.6 K/uL (0.1-1.3); Absolute Neutrophil 7.6 K/uL (1.8-8.0); Basophils % 0.8 % (0-1.3); Eosinophils % 1.2 % (0-4.4); Hematocrit 30.1 % (39.6-49.0); Hemoglobin 9.8 g/dL (13.6-17.9); Lymphocytes % 12.3 % (15.3-44.8); MCHC 32.4 g/dL (32.0-36.0); MCV 70.9 fL (80-100); MPV 8.4 fL (7.6-11.3); Neutrophils % 79.7 % (41.7-73.7); Nucleated Red Blood Cells % 0.1 % (0-0); Platelets 346 thou/uL (152-406); RBC Red Blood Cell Count 4.25 M/uL (4.33-5.43); Red Cell Distribution Width 23.6 % (12.1-15.2)
[2024-06-01 04:55] LABS: Albumin 2.9 g/dL (3.4-5.0); Anion Gap 10.3 mEq/L (5.0-15.0); Magnesium 2.1 mg/dL (1.6-2.4); Phosphorus 3.5 mg/dL (2.5-4.9); Potassium 3.3 mEq/L (3.5-5.1)
[2024-06-01 04:56] LABS: Troponin High Sensitivity 85.1 pg/mL (<58.9)
--- NOTE | 2024-06-01 08:29 | ECHO ---
HEIGHT: 5 ft 10 in WEIGHT: 187 lb 0 oz DATE OF STUDY: 05/31/[address]: Katherine Garcia MD 2-DIMENSIONAL: YES M.MODE: YES DOPPLER: YES COLOR FLOW: YES TDS: NO PORTABLE: YES DEFINITY: NO BUBBLE STUDY: NO DIAGNOSIS: CONGESTIVE HEART FAILURE CARDIAC HISTORY: CATHERIZATION:YES SURGERY: NO PROSTHETIC VALVE: NO PACEMAKER: NO MEASUREMENTS (cm) DIASTOLIC (NORMALS) SYSTOLIC (NORMALS) IVSd 1.4 (0.6-1.2) LA Diam 5.1 (1.9-4.0) LVEF 30-35% LVIDd 5.3 (3.5-5.7) LVIDs 4.6 (2.0-3.5) %FS 14% LVPWd 1.2 (0.6-1.2) Ao Diam 3.0 (2.0-3.7) 2 DIMENSIONAL ASSESSMENT: RIGHT ATRIUM: NORMAL LEFT ATRIUM: NORMAL RIGHT VENTRICLE: NORMAL LEFT VENTRICLE: MILDLY DILATED, MILD LEFT VENTRICULAR HYPERTROPHY TRICUSPID VALVE: MILD TRICUSPID REGURGITATION MITRAL VALVE: MILD MITRAL REGURGITATION PULMONIC VALVE: NORMAL AORTIC VALVE: NORMAL PERICARDIAL EFFUSION: NONE AORTIC ROOT: NORMAL LEFT VENTRICULAR WALL MOTION: MODERATE GLOBAL HYPOKINESIS WITH SEVERE HYPOKINESIS OF INFEROLATERAL AND LATERAL BARTON. DOPPLER/COLOR FLOW: DIASTOLIC DYSFUNCTION. COMMENTS: 1. SEVERELY REDUCED LEFT VENTRICULAR SYSTOLIC FUNCTION. LEFT VENTRICULAR EJECTION FRACTION 30-35%. SEVERE HYOPKINESIS OF INFEROLATERAL AND LATERAL BARTON. 2. DIASTOLIC DYSFUNCTION. 3. MILD MITRAL REGURGITATION. 4. MILDLY ELEVATED FILLING PRESSURES. RIGHT ATRIAL PRESSURE 10-15 mmHg. 5. MODERATE PULMONARY HYPERTENSION. RIGHT VENTRICULAR SYSTOLIC PRESSURE 45-50 mmHg. TECHNOLOGIST: SOPHIA AHUJA [facility]
[2024-06-01] MEDS: TORSEMIDE 20 MG TAB PO SCH (08:36)
[2024-06-01] MEDS: POTASSIUM CL SA 10 MEQ TAB PO ONE (08:36)
[2024-06-01] MEDS: PANTOPRAZOLE 40MG TABLET PO SCH (08:38)
[2024-06-01] MEDS: CLOPIDOGREL 75 MG TABLET PO SCH (08:38)
[2024-06-01] MEDS ORDERED: ENOXAPARIN 100 MG/ML SYR SQ SCH (09:00)
[2024-06-01] MEDS ORDERED: LOSARTAN POTASSIUM 50 MG TABLET PO SCH (09:00)
[2024-06-01 09:40] VITALS: TEMP 98.7
--- NOTE | 2024-06-01 11:08 | P.DS ---
Admission Date: 05/31/24 Discharge Date: 06/01/24 Disposition: ROUTINE DISCHARGE Discharge Condition: GOOD Reason for Admission: SOB Brief History of Present Illness: 58-year-old male with history of coronary artery disease, hypertension presents to the ER with complaints of 5-day history of shortness of breath. He does report having a cough with clear phlegm. He does smoke. Denies any fevers or chills. Reported some dyspnea on exertion. Imaging suggestive of fluid overload. Patient denies any chest pain, fevers diarrhea or recent sick contacts. He does work as a refrigerated national truck driver. General: Alert, In no apparent distress HEENT: Atraumatic, PERRLA, Mucous membr. moist/pink, EOMI, Sclerae nonicteric Neck: Supple, 2+ carotid pulse no bruit, No LAD, Without JVD or thyroid abnormality Respiratory: Clear to auscultation bilaterally, Normal air movement Cardiovascular: Regular rate/rhythm, Normal S1 S2 Gastrointestinal: Normal bowel sounds, No tenderness Musculoskeletal: No tenderness Integumentary: No rashes Neurological: Normal gait, Normal speech, Normal tone, Normal affect Hospital Course: 58-year-old male with history of coronary artery disease, hypertension presents to the ER with complaints of 5-day history of shortness of breath. He does report having a cough with clear phlegm. He does smoke. Denies any fevers or chills. Reported some dyspnea on exertion. Imaging suggestive of fluid overload. Patient denies any chest pain, fevers diarrhea or recent sick contacts. He does work as a refrigerated national truck driver. He had a recent stress test that was negative, elevated troponin, hypertensive urgency likely secondary to NSTEMI type II. Plan to discharge home, follow-up with cardiology after discharge. Assessment NSTEMI type II Acute heart failure with reduced ejection prior Hypertensive urgency History of CAD Rad/Lab/Micro: Elevated troponin, 89, 87, 85, secondary to NE type II Echocardiogram SEVERELY REDUCED LEFT VENTRICULAR SYSTOLIC FUNCTION. LEFT VENTRICULAR EJECTION FRACTION 30-35%. SEVERE HYOPKINESIS OF INFEROLATERAL AND LATERAL BARTON. 2. DIASTOLIC DYSFUNCTION. 3. MILD MITRAL REGURGITATION. 4. MILDLY ELEVATED FILLING PRESSURES. RIGHT ATRIAL PRESSURE 10-15 mmHg. 5. MODERATE PULMONARY HYPERTENSION. RIGHT VENTRICULAR SYSTOLIC PRESSURE 45-50 Continue home medicines as previously prescribed GOAL: Clear understanding of disease process INSTRUCTIONS: Physician Discharge Instructions: -Follow-up with cardiology after discharge, call office for -Follow-up with PCP in 1 to 2 weeks -Please call Dr. Leon at [phone] if any questions regarding hospital stay -Please call nursing station at [phone] if any nursing or medication questions -Return to the emergency room if symptoms worsen Diet: ADA, low sodium Activity: Fall precautions Vital Signs/Physical Exam: Temp Pulse Resp BP Pulse Ox 98.7 F 95 H 16 182/102 H 97 06/01/24 08:00 06/01/24 08:00 06/01/24 08:00 06/01/24 08:36 06/01/24 08:00 Laboratory Data at Discharge: WBC 9.60 thou/uL (4.3-10.9) 06/01/24 04:12 Hgb 9.8 g/dL (13.6-17.9) L 06/01/24 04:12 Hct 30.1 % (39.6-49.0) L 06/01/24 04:12 Plt Count 346 thou/uL (152-406) 06/01/24 04:12 PT 14.8 SECONDS (9.4-12.5) H 05/31/24 02:38 INR 1.33 05/31/24 02:38 Sodium 140 mEq/L (136-145) 06/01/24 04:12 Potassium 3.3 mEq/L (3.5-5.1) L 06/01/24 04:12 BUN 28 mg/dL (7-18) H 06/01/24 04:12 Creatinine 1.48 mg/dL (0.70-1.30) H 06/01/24 04:12 Glucose 133 mg/dL (74-106) H 06/01/24 04:12 Phosphorus 3.5 mg/dL (2.5-4.9) 06/01/24 04:12 Magnesium 2.1 mg/dL (1.6-2.4) 06/01/24 04:12 Total Bilirubin 1.0 mg/dL (0.2-1.0) 05/31/24 02:38 AST 29 U/L (15-37) 05/31/24 02:38 ALT 55 U/L (16-61) 05/31/24 02:38 Alkaline Phosphatase 138 U/L (45-117) H 05/31/24 02:38 Triglycerides 87 mg/dL (<150) 06/01/24 04:12 Cholesterol 110 mg/dL (<200) 06/01/24 04:12 HDL Cholesterol 31 mg/dL (40-60) L 06/01/24 04:12 Cholesterol/HDL Ratio 3.55 06/01/24 04:12 Home Medications: Atorvastatin Calcium [Lipitor] 80 mg PO BEDTIME 05/31/24 Clopidogrel Bisulfate [Plavix] 75 mg PO DAILY 05/31/24 Pantoprazole [Protonix Tab*] 40 mg PO DAILY 05/31/24 Torsemide [Demadex*] 20 mg PO DAILY 05/31/24 carvediloL [Carvedilol] 25 mg PO BID 05/31/24 Hydralazine HCl 100 mg PO TID #90 tab 06/01/24 Isosorbide Dinit [Isordil*] 10 mg PO TID #90 tab 06/01/24 carvediloL [Coreg*] 25 mg PO BID 6AM 6PM #60 tab 06/01/24 New Medications: carvediloL [Coreg*] 25 mg PO BID 6AM 6PM #60 tab Hydralazine HCl 100 mg PO TID #90 tab Isosorbide Dinit [Isordil*] 10 mg PO TID #90 tab Diet: AHA (low sodium) Activity: Fall precautions Followup: ANJELICA DEJESUS [Primary Care Provider] - Wan Anaya MD [OUTSIDE PHYSICIAN] - Time spent managing pt's care (in minutes): 45
[2024-06-01] MEDS: CLONIDINE HCL 0.3 MG TAB PO ONE (11:19)
[2024-06-01] MEDS: SPIRONOLACTONE 25 MG TABLET PO SCH (11:19)
[2024-06-01 11:20] VITALS: BP 190/88
--- NOTE | 2024-06-04 10:58 | EKG ---
Test Date: 2024-05-31 Test Time: 02:51:57 [employer]: BIB MEASUREMENT RESULTS: Intervals: Rate: 98 VT: 158 QRSD: 118 QT: 398 QTc: 508 [place]: P: 61 VT: 158 QRS: 72 T: -65 INTERPRETIVE STATEMENTS: Normal sinus rhythm with PVC Nonspecific intraventricular conduction delay T wave abnormality, consider inferior ischemia Prolonged QT Abnormal ECG No previous ECG available for comparison Electronically Signed On 06-04-24 10:52:27 DOG TRAINER by Hardeep Blanc
== END 2024-06-01 12:27 | disposition home or self-care (01) | DRG 280 ==
LOC: ER 02:05 → 2ND 05:42
PROVIDERS: ADMIT Internal Medicine; ATTEND Hospitalist
DX: I11.0 Hypertensive heart disease with heart failure (principal); I50.33 Acute on chronic diastolic (congestive) heart failure; I21.A1 Myocardial infarction type 2; J81.0 Acute pulmonary edema; N17.9 Acute kidney failure, unspecified; J44.9 Chronic obstructive pulmonary disease, unspecified; I16.0 Hypertensive urgency; I25.10 Atherosclerotic heart disease of native coronary artery without angina pectoris; F17.210 Nicotine dependence, cigarettes, uncomplicated; E87.6 Hypokalemia
CPT/HCPCS: 36415; 71045; 80048; 80061; 80069; 80076; 83735; 83880; 84132; 84484; 85025; 85610; 86140; 87804; 93005; 93306; 96372; 96374; 96375; 99285; J0360; J1940; J3480; J7050